=== PATIENT | female | born 1960 | race African-American/Black ===

== ENCOUNTER → 2019-02-12 | Outpatient (CLI) | payer OTHER ==
[~2019-02-12] MED LIST: HYDR12.575 PO; LEVO75TA5 PO; LOSA100T14 PO; LOVA20TA2 PO
--- NOTE | 2019-02-14 10:25 | KCIC ---
Bilateral digital screening mammograms: Reason for examination: Routine screening. Comparison is made to previous study dated 01/29/2010. Interpretation was made with the benefit of CAD. The skin and nipples show no abnormalities. No abnormal axillary lymph nodes are seen. The breast parenchyma shows scattered fibroglandular density. (Breast density: Category B.) There are no dominant masses, suspicious calcifications or architectural distortions. Impression: No evidence of malignancy. Recommend routine screening. BI-RADS Category 1: Negative. "Our facility is accredited by the [employer] Mammography Program." This patient's information has been entered into a reminder system for the patient to be notified with the results of her examination and a target date for the next mammogram. Electronically signed by: Radha Stapleton MD (02/14/2019 10:22 AM) [id number]
== END | disposition home or self-care (01) ==
LOC: KCIC MAMMO 15:21
PROVIDERS: ATTEND Family Medicine
DX: Z12.31 Encounter for screening mammogram for malignant neoplasm of breast (principal)
CPT/HCPCS: 77067

== ENCOUNTER → 2019-02-14 | Day surgery (SDC) | payer OTHER ==
[~2019-02-14] MED LIST changes: +GLYCOPYRROLATE 1 MG/5 ML VIAL. ONE; +IV RINGERS,LACTATED 1000ML 1,000 ML IV ONE; +LIDOCAINE 2% PF 5 ML VIAL. ONE; +PROPOFOL 40 ML IV ONE; +ePHEDrine PF IN SALINE 50 MG/10 ML SYRINGE. IV ONE
[2019-02-14 08:47] VITALS: BP 118/73
--- NOTE | 2019-02-14 10:12 | CONS ---
DATE OF CONSULTATION: 02/14/2019 REFERRING PHYSICIAN: Dr. Diego Leonard. HISTORY OF PRESENT ILLNESS: This is a 58-year-old -Spanish female with past medical history significant for hypothyroidism, hypertension, is seen for interval colonoscopy. Last exam was done over 10 years ago was unrevealing. The patient denies any change in bowel habits at this time without any diarrhea, constipation, melena and/or hematochezia. Weight and appetite are stable. No family history of colon polyps or colon cancers is noted. She is otherwise without additional complaints. PAST MEDICAL HISTORY: Hypothyroidism and hypertension. ALLERGIES: None. MEDICATIONS: Include hydrochlorothiazide 25 mg daily, levothyroxine 75 mcg daily, losartan 100 mg daily and lovastatin 20 mg daily. SOCIAL HISTORY: She is a nonsmoker, nondrinker. FAMILY HISTORY: Significant for diabetes with both parents and a sister, high blood pressure with her mother and liver disease with her father. PAST SURGICAL HISTORY: Noncontributory. REVIEW OF SYSTEMS: HEENT: No decreased hearing or visual acuity issues. CARDIAC: History of hypertension. PULMONARY: No shortness of breath, productive cough, or asthma. NEUROLOGIC: No stroke, migraine, or neuropathy. PSYCHIATRIC: No mood swings, depression, or insomnia. HEMATOLOGIC: No bleeding, bruising, or coagulopathy. ENDOCRINE: History of hypothyroidism. GASTROINTESTINAL: See history of present illness. MUSCULOSKELETAL: No osteoarthrosis, arthralgias, or myalgias. DERMATOLOGIC: No skin rashes or pruritus. PHYSICAL EXAMINATION: GENERAL: Reveals a well-nourished, well-developed -Spanish female who is alert, cooperative, in no acute distress. VITAL SIGNS: Temperature is 98.4, pulse 56, respirations 20. HEENT: Normocephalic, atraumatic head. Pupils and extraocular muscles are not tested. Sclerae anicteric. NECK: Supple. LUNGS: Clear. CARDIOVASCULAR: Reveals an S1, S2 without S3, S4 or appreciable murmur. ABDOMEN: Reveals a soft abdomen. Normoactive bowel sounds without appreciable hepatosplenomegaly. EXTREMITIES: Reveals no cyanosis, clubbing or edema. IMPRESSION: Colorectal screening is warranted at this time. Risks and benefits of procedure including the risk of hemorrhage and/or perforation requiring operation have been discussed. The patient is willing to proceed at this time. PONCE SOE MD DR: Art JOB#: [id number] / [id number] Diego Quiros
== END ==
LOC: ENDOS 07:10 → EDUNIT# 08:30
PROVIDERS: ATTEND Internal Medicine Gastroenterology
DX: Z12.11 Encounter for screening for malignant neoplasm of colon (principal); K57.30 Diverticulosis of large intestine without perforation or abscess without bleeding; K64.0 First degree hemorrhoids; E03.9 Hypothyroidism, unspecified; I10 Essential (primary) hypertension; Z98.890 Other specified postprocedural states
CPT/HCPCS: 45378; J0171; J2001; J2704; J3490